=== PATIENT | female | born 1990 | race Caucasian/White ===

== ENCOUNTER 2017-01-13 06:00 | Inpatient (IN) ==
[2017-01-13] MEDS ORDERED: METHYLERGONOVINE 0.2 MG/ML INJECTION IM PRN (06:14)
[2017-01-13] MEDS ORDERED: MAG-AL + SIM ORAL LIQUID 30ml PO PRN ×2 (06:14→15:07)
[2017-01-13] MEDS ORDERED: CARBOPROST 250 MCG/ML INJECTION IM PRN (06:14)
[2017-01-13] MEDS ORDERED: LIDOCAINE 1% (10mg/ml) 2mL INJ PF SDV ID PRN (06:14)
[2017-01-13] MEDS ORDERED: ACETAMINOPHEN 500 MG TABLET PO PRN ×2 (06:14→15:07)
[2017-01-13] MEDS ORDERED: CALCIUM CARBONATE Chewable 500mg TABLET PO PRN ×2 (06:14→15:07)
[2017-01-13] MEDS ORDERED: OXYTOCIN DRIP 30 UNIT/500 ML ML IV PRN (06:14)
[2017-01-13] MEDS: LR 1,000 ML IV PRN ×2 (06:38→10:08)
[2017-01-13] MEDS ORDERED: D5LR 1,000 ML IV PRN (07:00)
[2017-01-13 07:33] VITALS: BMI 56.1
[2017-01-13] MEDS ORDERED: SALINE 0.65% NASAL SPRAY 44 ML BOTTLE EA NOSTRIL PRN (08:33)
--- NOTE | 2017-01-13 08:45 | Anesthesia Preoperative Report ---
Anesthesia Epidural/Spinal Rec - Date and Time Date: 01/13/17 Preoperative Diagnosis: labor, twins, Procedure: Labor Epidural Plan: Epidural - Vital Signs Vital Signs: Temperature 97.7 F 01/13/17 06:43 Pulse Rate 93 01/13/17 06:43 Respiratory Rate 18 01/13/17 06:43 Blood Pressure 128/69 01/13/17 06:43 Pulse Oximetry 99 01/13/17 06:43 /Para: P:2 - Medictaions & Allergies Inpatient Medications: Current Medications Acetaminophen (Tylenol) 500 - 1,000 mg PO Q4H PRN PRN Reason: Pain Al Hydroxide/Mg Hydroxide (Maalox Plus) 30 ml PO Q3H PRN PRN Reason: Indigestion Calcium Carbonate (Tums) 500 - 1,000 mg PO Q2H PRN PRN Reason: Indigestion Carboprost Tromethamine (Hemabate) 250 mcg IM O PRN PRN Reason: .Downtime Dextrose/Lactated Ringer's (Dextrose 5%-Lactated Ringers) 1,000 mls @ 125 mls/ hr IV .Q8H PRN PRN Reason: Labor Last Admin: 01/13/17 06:56 Dose: 125 mls/hr Lactated Ringer's (Lactated Ringers) 1,000 mls @ 999 mls/hr IV .Q1H1M PRN Last Admin: 01/13/17 06:38 Dose: 999 mls/hr Oxytocin (Pitocin Drip) 30 unit in 500 mls @ 2 mls/hr IV .Q24H PRN; Protocol PRN Reason: Induction/Augmentation Last Admin: 01/13/17 06:56 Dose: 2 mls/hr Lidocaine HCl (Xylocaine-Mpf 1% Vial) 0.2 mg ID O PRN PRN Reason: IV Start Methylergonovine Maleate (Methergine) 0.2 mg IM O PRN Misoprostol (Cytotec) 800 mcg DC ONCE PRN Sodium Chloride (Deep Sea Nasal Moisturizing [place]) 1 spray EA NOSTRIL PRN PRN PRN Reason: Congestion Allergies/Adverse Reactions: Allergies Allergy/AdvReac Type Severity Reaction Status Date / Time honey Allergy Intermediate vomiting Verified 06/04/10 13:33 and diarrhea Pork/Porcine Containing Allergy Intermediate vomiting & Verified 06/04/10 13:33 Products diarrhea Cephalexin Monohydrate Allergy Intermediate face swells Uncoded 06/04/10 11:23 - Home Medications Home Medications: Home Medications Medication Instructions Recorded Confirmed Type Calcium Carbonate [Calcium Antacid] 750 mg PO PRN PRN #0 06/04/10 01/13/17 History Docusate Sodium [Stool Softener] 50 mg PO DAILY 12/22/16 01/13/17 History Ferrous Sulfate [Feosol] 325 mg PO DAILY 12/22/16 01/13/17 History Folic Acid [Folate] 1 tab PO DAILY 12/22/16 01/13/17 History Vit No.124/Iron/Folic 1 each PO DAILY 12/22/16 01/13/17 History [ Vitamin Tablet] - Medical History Respiratory: Reports: Asthma (last inhaler use 1 month ago, mild ) Gastrointestional: Reports: Morbid Obesity Neuro/Musculoskeletal: Reports: Depression (no meds), Other (chronic lower back pain, has not sought treatment ) Other History: Reports: Now - Surgical History HEENT Surgeries: Reports: Ear Surgery (as kid), Tonsillectomy (as kid) Reproductive Surgery/Treatment: DENIES: Section Anesthesia Reactions: None Hx Family Anesthesia Reaction: No - Social History Smoking Status: Former smoker (quit 6 plus years ago) - Pertinent Findings Lab Data: CBC and BMP 01/13/17 06:31 - Physical Exam Respiratory Exam: lungs clear, bilateral breath sounds equal Cardiovascular Exam: regular rate and rhythm, no murmur - Airway Assessment Mallampati Score: III TMD: 3 Fingerbreadths Neck Extension: good Teeth: other (chipped front teeth ) Overall Assessment: may be difficult mask vent, may be difficult intubation - ASA ASA Score: 3 - Discussion Discussion: Discussed risks/options/alternatives of anesthesia and questions answered. Patient consents. Nursing pain assessment noted. Attestation Statement: Prior to the delivery of any anesthetic medication, I examined the patient, developed the plan, obtained the patient's consent and discussed the risk and benefits of the procedure with the patient/guardian.
[2017-01-13] MEDS ORDERED: LIDOCAINE 2%/EPI 1:200,000 20ml SDV PF ONE (13:26)
[2017-01-13] MEDS ORDERED: DiphenhydrAMINE 25 MG CAPSULE PO PRN (15:07)
[2017-01-13] MEDS ORDERED: HYDROCODONE/APAP 5mg/325mg TABLET PO PRN (15:07)
[2017-01-13] MEDS ORDERED: HYDROCORTISONE 2.5% CREAM 30gm RECTALLY PRN (15:07)
[2017-01-13] MEDS ORDERED: OXYTOCIN DRIP 30 UNIT/500 ML ML IV SCH (15:07)
[2017-01-13] MEDS ORDERED: BENZOCAINE 20% SPRAY 0.5 ML MM ONE (15:07)
[2017-01-13] MEDS: IBUPROFEN 800 MG TABLET PO PRN (16:31)
--- NOTE | 2017-01-13 18:39 | Labor and Delivery Note ---
DATE OF DELIVERY: 01/13/2017 DIAGNOSES 1. 26-year-old white female G6, P2 at 38.0 weeks gestational age. 2. Diamniotic/Dichorionic TWINS in a vertex/vertex presentation. 3. Pitocin induction for twins at term. 4. Maternal obesity. 5. Artificial rupture of membranes. 6. Epidural catheter placement. 7. Spontaneous vaginal delivery x 2. 8. Twin A Apgars, 3084 g, 6 pounds 13 ounces, male , ([place]). 9. Twin B Apgars, 2708 g, 6 pounds, nuchal cord x 1, female infant, ( [place]). BRIEF DESCRIPTION This is a patient of [facility] with known di-di twins that was admitted today at 38.0 for a term induction. Pitocin reached 20 milliunits a minute, then artificial rupture of membranes occurred. The patient did not want a block but because of the increased risk of twin an epidural catheter was placed but not dosed. She began progressing and Pitocin was turned down to 10 and then later off. Her cervix was initially 3.5 cm. She made it to complete dilation and was moved to the room for delivery. A was delivered from the vertex OA position without difficulty. was bulb suctioned after delivery of the head and then again after delivery of the body. Cord was allowed to drain for about 1-1/2 minutes to 2 minutes and doubly clamped and cut. The infant was taken to the isolette. Dr. Dwyer was there assisting me and running the sono. Twin B was in the vertex position. Pitocin was restarted at 6 milliunits a minute. Artificial rupture of membranes occurred. Infant began descending in the pelvis. With pushing we got some blood clots and a deceleration. We began opening in case a would be needed but with increased effort at pushing with the next two contractions we had a vaginal delivery from the OA position. There was a nuchal cord x 1 that was reduced. Infant was bulb suctioned after delivery of the head and then again after delivery of the body. Cord was allowed to drain for about 2 minutes, then doubly clamped and cut. Dr. Lamont Kang received the infants. Placenta was delivered spontaneously and will be sent to Pathology. There were no perineal lacerations. Pitocin was restarted to get the uterus to clamp down and the patient was eventually returned to the labor room for recovery. Maternal blood type is A+, rubella is immune and GBS is negative. MTDD
[2017-01-13] MEDS ORDERED: BENZONATATE 200 MG CAPSULE PO PRN (22:09)
[2017-01-14] MEDS ORDERED: DOCUSATE CALCIUM 240 MG CAPSULE PO SCH (09:00)
[2017-01-14 09:11] VITALS: RESP 16
[2017-01-14] MEDS: IBUPROFEN 800 MG TABLET PO PRN (12:00)
--- NOTE | 2017-01-14 12:14 | Progress Note ---
OB PP Progress Note Free Text - Date Date: 01/14/17 - Progress Note Progress Note: vss af hgb noted no c/o disc uterine cramps w/ bf q&a
[2017-01-14 14:29] VITALS: BP 134/68; PULSE 82; TEMP 97.8; O2SAT 97
--- NOTE | 2017-01-14 16:47 | Anesthesia Postoperative Note ---
- Date and Time Date: 01/14/17 Time: 16:40 - Status Patient Participated in Evaluation: Patient Participated in Person Vital Signs: Temperature 97.8 F 01/14/17 14:20 Pulse Rate 82 01/14/17 14:20 Respiratory Rate 16 01/14/17 14:20 Blood Pressure 134/68 01/14/17 14:20 Pulse Oximetry 97 01/14/17 14:20 Respiratory Function: Airway Patent, Regular Respirations Cardiovascular Function: Regular Pulse Mental Status: Alert and Oriented Pain Intensity: 0 Hydration: Taking PO Fluids Complications During Recover: None Apparent Post Anesthesia Care Notes: Ambulating without problems - Follow-Up Instructions Instructions: Per Surgeon
== END 2017-01-14 19:49 | disposition home or self-care (01) | DRG 775 ==
LOC: MC 06:01
PROVIDERS: ADMIT Obstetrics & Gynecology; ATTEND Obstetrics & Gynecology